=== PATIENT | female | born 1955 | race Caucasian/White ===

== ENCOUNTER 2024-01-31 15:41 | Emergency (ER) | payer MEDICARE, OTHER ==
[2024-01-31] MEDS ORDERED: Ondansetron PF 4 MG/2 ML Vial ONE (16:34)
[2024-01-31 16:45] LABS: #Basophils 0.1 thou/uL (0.0-0.2); #Eosinphils 0.1 thou/uL (0.0-0.7); #Lymphocytes 2.1 thou/uL (1.20-3.40); #Monocytes 0.6 thou/uL (0.11-0.59); #Neutrophils 3.9 thou/uL (1.40-6.50); %Basophils 1.3 % (0.0-1.0); %Lymphocytes 30.5 % (21.0-51.0); %Monocytes 9.2 % (0.0-10.0); Hematocrit 42.2 % (36.0-47.0); Mean Corpuscular HGB CONC 30.9 g/dL (32.0-36.0); Mean Corpuscular Hemoglobin 29.3 pg (27.0-31.0); Mean Corpuscular Volume 94.8 fl (78.0-98.0); Mean Platelet Volume 8.3 fL (7.4-10.4); Platelet Count 225 10x3/uL (130-400); RBC Distribution Width 12.7 % (11.5-14.5); Red Blood Cell (RBC) Count 4.45 mill/uL (4.20-5.40); White Blood Cell (WBC) Count 6.8 10x3/uL (4.8-10.8)
[2024-01-31 17:02] LABS: ALT (SGPT) 17 U/L (8-55); AST (SGOT) 17 U/L (5-34); Albumin 4.4 g/dL (3.4-4.8); Alkaline Phosphatase 102 U/L (40-110); Anion Gap 16 mmol/L (10-20); BUN (Urea Nitrogen) 14 mg/dL (9.8-20.1); Bilirubin, Total 0.3 mg/dL (0.2-1.2); Calc. Creatinine Clearance 0 mL/min (70-130); Calcium 9.2 mg/dL (7.8-10.44); Carbon Dioxide 23 mmol/L (23-31); Chloride 106 mmol/L (98-107); Estimated GFR 48; Globulin 2.5 g/dL (2.4-3.5); Glucose 103 mg/dL (80-115); Lipase 36 U/L (8-78); Potassium 3.5 mmol/L (3.5-5.1); Protein, Total 6.9 g/dL (5.8-8.1); Sodium 141 mmol/L (136-145)
[2024-01-31 17:04] LABS: Troponin I Less than 0.010 ng/mL (< 0.028)
== END 2024-01-31 18:52 | disposition home or self-care (01) ==
LOC: MADERS 15:41
DX: R11.2 Nausea with vomiting, unspecified (principal); R19.7 Diarrhea, unspecified; K21.9 Gastro-esophageal reflux disease without esophagitis; F17.210 Nicotine dependence, cigarettes, uncomplicated; I12.9 Hypertensive chronic kidney disease with stage 1 through stage 4 chronic kidney disease, or unspecified chronic kidney disease; N18.30 Chronic kidney disease, stage 3 unspecified; Z79.899 Other long term (current) drug therapy
CPT/HCPCS: 80053; 83690; 84484; 85025; 93005; J2405; 36415; 96361; 96374

== ENCOUNTER 2024-02-06 09:23 | Emergency (ER) | payer OTHER ==
[2024-02-06] MEDS ORDERED: Ondansetron PF 4 MG/2 ML Vial ONE ×2 (10:05→13:38)
[2024-02-06] MEDS ORDERED: Morphine 4 MG/ML VIAL ONE ×2 (10:05→13:38)
[2024-02-06 10:25] LABS: #Basophils 0.1 thou/uL (0.0-0.2); #Eosinphils 0.2 thou/uL (0.0-0.7); #Lymphocytes 1.4 thou/uL (1.20-3.40); #Monocytes 0.6 thou/uL (0.11-0.59); %Basophils 1.1 % (0.0-1.0); %Eosinophils 2.4 % (0.0-10.0); %Lymphocytes 19.1 % (21.0-51.0); %Neutrophils 69.4 % (42.0-75.0); Hematocrit 39.8 % (36.0-47.0); Hemoglobin 12.5 g/dL (12.0-16.0); Mean Corpuscular HGB CONC 31.4 g/dL (32.0-36.0); Mean Corpuscular Hemoglobin 29.4 pg (27.0-31.0); Mean Corpuscular Volume 93.6 fl (78.0-98.0); Mean Platelet Volume 7.9 fL (7.4-10.4); Platelet Count 217 10x3/uL (130-400); RBC Distribution Width 12.7 % (11.5-14.5); Red Blood Cell (RBC) Count 4.25 mill/uL (4.20-5.40); White Blood Cell (WBC) Count 7.2 10x3/uL (4.8-10.8)
[2024-02-06 10:40] LABS: ALT (SGPT) 14 U/L (8-55); AST (SGOT) 15 U/L (5-34); Albumin 4.4 g/dL (3.4-4.8); Alkaline Phosphatase 101 U/L (40-110); Anion Gap 15 mmol/L (10-20); BUN (Urea Nitrogen) 8 mg/dL (9.8-20.1); Bilirubin, Total 0.4 mg/dL (0.2-1.2); Calc. Creatinine Clearance 0 mL/min (70-130); Calcium 9.2 mg/dL (7.8-10.44); Carbon Dioxide 24 mmol/L (23-31); Chloride 107 mmol/L (98-107); Estimated GFR 53; Globulin 2.3 g/dL (2.4-3.5); Glucose 107 mg/dL (80-115); Lipase 24 U/L (8-78); Magnesium 2.1 mg/dL (1.6-2.6); Potassium 3.5 mmol/L (3.5-5.1); Protein, Total 6.7 g/dL (5.8-8.1); Sodium 142 mmol/L (136-145)
[2024-02-06] MEDS ORDERED: Sodium Chloride 0.9% 500 ML ONE (11:50)
[2024-02-06 12:11] LABS: Bilirubin Negative (Negative); Blood, Urine Negative (Negative); Glucose, Urine (Dipstick) Negative (Negative); Ketone, Urine Negative (Negative); Leukocyte Small (Negative); Nitrite Negative (Negative); Protein, Urine (Dipstick) Negative (Neg-Trace); Urobilinogen 0.2 mg/dL (Less than 2)
[2024-02-06 12:15] LABS: Clarity Hazy (Clear)
[2024-02-06 12:17] LABS: Bacteria/HPF 2+ HPF (None Seen); CAUTI Indications for Culture Dysuria,urgency,freq; RBC/HPF 0-3 HPF (0-3); Squamous Epithelial 0-3 HPF (0-3)
[2024-02-06 12:18] LABS: Urine Culture Reflex Yes Yes
[2024-02-06] MEDS ORDERED: cefTRIAXone (ROCEPHIN) 1 GM VIAL ONE (13:07)
[2024-02-06] MEDS ORDERED: Sodium Chloride 0.9% 50 ML ONE (13:09)
== END 2024-02-06 14:47 | disposition short-term general hospital (02) ==
LOC: MADERS 09:23
DX: N39.0 Urinary tract infection, site not specified (principal); F41.9 Anxiety disorder, unspecified; K21.9 Gastro-esophageal reflux disease without esophagitis; F32.A Depression, unspecified; E78.5 Hyperlipidemia, unspecified; I12.9 Hypertensive chronic kidney disease with stage 1 through stage 4 chronic kidney disease, or unspecified chronic kidney disease; N18.30 Chronic kidney disease, stage 3 unspecified; F17.210 Nicotine dependence, cigarettes, uncomplicated; Z79.899 Other long term (current) drug therapy; Z95.0 Presence of cardiac pacemaker
CPT/HCPCS: 74177; 80053; 81001; 83605; 83690; 83735; 83880; 85025; 87086; J0696; J2270; J2405; J7030; 36415; 96361; 96365; 96375; 96376

== ENCOUNTER 2024-04-19 07:24 | Emergency (ER) | payer OTHER ==
[2024-04-19 09:32] LABS: Bilirubin Negative (Negative); Blood, Urine Negative (Negative); Clarity Clear (Clear); Glucose, Urine (Dipstick) Negative (Negative); Ketone, Urine Negative (Negative); Leukocyte Negative (Negative); Nitrite Negative (Negative); Protein, Urine (Dipstick) Trace mg/dL (Neg-Trace); Specific Gravity, Urine 1.017 (1.002-1.036); Urobilinogen 0.2 mg/dL (Less than 2)
[2024-04-19 09:38] LABS: CAUTI Indications for Culture Dysuria,urgency,freq; RBC/HPF 0-3 HPF (0-3)
[2024-04-19 09:39] LABS: Bacteria/HPF Rare-Few HPF (None Seen)
[2024-04-19 09:41] LABS: Urine Culture Reflex No No
== END 2024-04-19 10:34 | disposition home or self-care (01) ==
LOC: MADERS 07:24
DX: R30.0 Dysuria (principal); I12.9 Hypertensive chronic kidney disease with stage 1 through stage 4 chronic kidney disease, or unspecified chronic kidney disease; N18.30 Chronic kidney disease, stage 3 unspecified; J44.9 Chronic obstructive pulmonary disease, unspecified; F17.210 Nicotine dependence, cigarettes, uncomplicated; Z79.82 Long term (current) use of aspirin; Z79.899 Other long term (current) drug therapy
CPT/HCPCS: 81001; 99283

== ENCOUNTER 2024-07-25 10:28 | Outpatient (CLI) | payer OTHER | END 2024-07-25 10:29 | disposition home or self-care (01) | LOC: MADRAD 10:28 | PROVIDERS: ATTEND Family Medicine | DX: M79.644 Pain in right finger(s) (principal); M19.041 Primary osteoarthritis, right hand ==

== ENCOUNTER 2024-08-03 11:50 | Outpatient (CLI) | payer OTHER | END 2024-08-03 11:51 | disposition home or self-care (01) | LOC: MADRAD 11:50 | PROVIDERS: ATTEND Family Medicine | DX: J18.9 Pneumonia, unspecified organism (principal); J98.4 Other disorders of lung; R91.8 Other nonspecific abnormal finding of lung field; Z95.0 Presence of cardiac pacemaker | CPT/HCPCS: 71046 ==

== ENCOUNTER 2025-07-14 10:49 | Emergency (ER) | payer OTHER ==
[2025-07-14 12:50] LABS: Prothrombin Time 104.0 sec (12.0-14.7)
[2025-07-14 12:51] LABS: PTT 113.0 sec (22.9-36.1)
[2025-07-14 12:57] LABS: #Basophils 0.1 thou/uL (0.0-0.2); #Eosinophils 0.2 thou/uL (0.0-0.7); #Lymphocytes 1.9 thou/uL (1.20-3.40); #Monocytes 0.5 thou/uL (0.11-0.59); #Neutrophils 2.7 thou/uL (1.40-6.50); %Basophils 1.1 % (0.0-1.0); %Eosinophils 3.3 % (0.0-10.0); %Lymphocytes 35.3 % (21.0-51.0); %Monocytes 10.1 % (0.0-10.0); %Neutrophils 50.3 % (42.0-75.0); Hematocrit 16.8 % (36.0-47.0); Hemoglobin 5.3 g/dL (12.0-16.0); Mean Corpuscular Hemoglobin 31.9 pg (27.0-31.0); Mean Corpuscular Volume 101.0 fl (78.0-98.0); Platelet Count 269 10x3/uL (130-400); Red Blood Cell (RBC) Count 1.66 mill/uL (4.20-5.40); White Blood Cell (WBC) Count 5.3 10x3/uL (4.8-10.8)
[2025-07-14 12:59] LABS: ALT (SGPT) 32 U/L (Less than 34); AST (SGOT) 31 U/L (11-34); Albumin 3.2 g/dL (3.1-4.5); Alkaline Phosphatase 53 U/L (40-110); Anion Gap 14 mmol/L (10-20); BUN (Urea Nitrogen) 24 mg/dL (9.8-20.1); Bilirubin, Total 0.1 mg/dL (0.3-1.2); Calc. Creatinine Clearance 0 mL/min (70-130); Calcium 8.2 mg/dL (7.8-10.44); Carbon Dioxide 21 mmol/L (23-31); Chloride 110 mmol/L (98-107); Globulin 2.1 g/dL (2.4-3.5); Glucose 99 mg/dL (80-115); Potassium 3.7 mmol/L (3.5-5.1); Sodium 141 mmol/L (136-145); Troponin I 0.026 ng/mL (< 0.028)
[2025-07-14 13:05] LABS: INR-International Normal Ratio 13.9
[2025-07-14 13:26] LABS: Glucose, Urine (Dipstick) Negative (Negative); Leukocyte Trace (Negative); Protein, Urine (Dipstick) Negative (Neg-Trace); Specific Gravity, Urine 1.015 (1.005-1.030)
[2025-07-14 13:33] LABS: Bacteria/HPF Rare-Few HPF (None Seen); CAUTI Indications for Culture Dysuria,urgency,freq; RBC/HPF Greater than 50 HPF (0-3)
[2025-07-14 13:34] LABS: Mucous/LPF Few LPF (<2+); Yeast-Budding 1+ HPF (None Seen)
[2025-07-14 13:35] LABS: Urine Culture Reflex Yes Yes
[2025-07-14] MEDS ORDERED: Ciprofloxacin 500 MG TAB ONE (14:03)
[2025-07-14] MEDS ORDERED: HUM PROTHROMBIN CPLX(PCC) 1,000 UNITS VIAL ONE ×2 (14:27)
[2025-07-14] MEDS ORDERED: Pantoprazole 40 MG VIAL ONE (16:19)
== END 2025-07-14 18:32 | disposition short-term general hospital (02) ==
LOC: MADERS 10:49
DX: S41.131A Puncture wound without foreign body of right upper arm, initial encounter (principal); K92.2 Gastrointestinal hemorrhage, unspecified; D64.9 Anemia, unspecified; T83.511A Infection and inflammatory reaction due to indwelling urethral catheter, initial encounter; K92.1 Melena; I25.2 Old myocardial infarction; Z79.01 Long term (current) use of anticoagulants; W26.8XXA Contact with other sharp object(s), not elsewhere classified, initial encounter
CPT/HCPCS: 36430; 71045; 80053; 81001; 84484; 85025; 85610; 85730; 86850; 86900; 86901; 87086; 93005; 96374; 96375; J2470; J2720; J3430; J7168; P9016

== ENCOUNTER 2025-08-15 12:22 | Emergency (ER) | payer MEDICARE, OTHER ==
[~2025-08-15 12:22] MED LIST: Iopamidol 370 76% 100 ML VIAL ONE
[2025-08-15 12:46] LABS: Glucose, Urine (Dipstick) Negative (Negative); Leukocyte Moderate (Negative); Protein, Urine (Dipstick) 30 mg/dL (Neg-Trace); Specific Gravity, Urine 1.015 (1.005-1.030)
[2025-08-15 12:49] LABS: Bacteria/HPF 3+ HPF (None Seen); CAUTI Indications for Culture Alt mental st,lethar; WBC/HPF Greater Than 50 HPF (0-3)
[2025-08-15 12:50] LABS: Urine Culture Reflex Yes Yes
[2025-08-15 13:55] LABS: INR-International Normal Ratio 0.8; Prothrombin Time 11.2 sec (12.0-14.7)
[2025-08-15 13:59] LABS: Anisocytosis SLIGHT = 6-15 cells (100X) (0-5/hpf); Hematocrit 41.2 % (36.0-47.0); Hemoglobin 13.0 g/dL (12.0-16.0); MDiff Complete? YES; Mean Corpuscular Hemoglobin 29.8 pg (27.0-31.0); Mean Corpuscular Volume 94.3 fl (78.0-98.0); PTT 20.0 sec (22.9-36.1); Platelet Adequacy Comment Appears Adequate; Platelet Count 299 10x3/uL (130-400); Red Blood Cell (RBC) Count 4.36 mill/uL (4.20-5.40); White Blood Cell (WBC) Count 6.1 10x3/uL (4.8-10.8)
[2025-08-15 14:02] LABS: ALT (SGPT) 15 U/L (Less than 34); AST (SGOT) 28 U/L (11-34); Albumin 4.6 g/dL (3.1-4.5); Alkaline Phosphatase 88 U/L (40-110); Anion Gap 18 mmol/L (10-20); BUN (Urea Nitrogen) 12 mg/dL (9.8-20.1); Bilirubin, Total 0.3 mg/dL (0.3-1.2); Calc. Creatinine Clearance 0 mL/min (70-130); Calcium 9.4 mg/dL (7.8-10.44); Carbon Dioxide 24 mmol/L (23-31); Chloride 103 mmol/L (98-107); Globulin 3.2 g/dL (2.4-3.5); Glucose 63 mg/dL (80-115); Potassium 4.5 mmol/L (3.5-5.1); Sodium 140 mmol/L (136-145)
== END 2025-08-15 15:50 | disposition home or self-care (01) ==
LOC: MADERS 12:22
DX: I95.9 Hypotension, unspecified (principal); N39.0 Urinary tract infection, site not specified; I48.91 Unspecified atrial fibrillation; F17.290 Nicotine dependence, other tobacco product, uncomplicated
CPT/HCPCS: 51702; 71275; 74177; 80053; 81001; 85025; 85610; 85730; 87077; 87086; 93005; Q9967